=== PATIENT | female | born 1980 | race Caucasian/White ===

== ENCOUNTER 2018-02-24 20:35 | Emergency (ER) | payer OTHER, MEDICAID ==
[~2018-02-24] VITALS: Ht 157.5 cm; Wt 76.2 kg
[~2018-02-24 20:35] MED LIST: DIPH25CA83 PO; HYDC.5%; PRED5TAB3 PO; TRIA15CR4
[2018-02-24 20:40] VITALS: BP_SYST 147
[2018-02-24] MEDS ORDERED: IBUPROFEN 600 MG TABLET PO ONE (21:15)
[2018-02-24] MEDS ORDERED: SULFAMETHOXAZOLE/TRIMETHOPR DS 1 TABLET PO ONE (21:15)
[2018-02-24 22:19] VITALS: BP_SYST 129
== END 2018-02-24 22:19 | disposition home or self-care (01) ==
LOC: SED 20:35
DX: S90.462A Insect bite (nonvenomous), left great toe, initial encounter (principal); L03.032 Cellulitis of left toe; I10 Essential (primary) hypertension; Z79.899 Other long term (current) drug therapy; W57.XXXA Bitten or stung by nonvenomous insect and other nonvenomous arthropods, initial encounter; Y93.89 Activity, other specified; Y92.89 Other specified places as the place of occurrence of the external cause; Y99.8 Other external cause status
CPT/HCPCS: 99283